=== PATIENT | male | born 1970 | race Hispanic/Latino ===

== ENCOUNTER → 2018-04-03 | Outpatient (CLI) | payer OTHER ==
--- NOTE | 2018-04-06 15:16 | Diagnostic Imaging Report ---
PROCEDURE:TESTICULAR DOPPLER ULTRASOUND COMPARISON:None. INDICATIONS:OTHER CHRONIC PAIN TECHNIQUE: West-scale and color Doppler images of the testicles and scrotal contents were obtained. Duplex imaging with spectral waveform analysis was performed of the testicular arteries and veins. FINDINGS: RIGHT SCROTUM: Testicle: Measures 3.7 x 2.8 x 2.6 cm. Epididymal head: Measures 0.7 x 1.3 x 0.6 cm. Hydrocele: Small hydrocele present. Varicocele: None LEFT SCROTUM: Testicle: The measures 3.9 x 2.3 x 2.6 cm. Epididymal head: Measures 0.8 x 0.9 x 0.6 cm. Hydrocele: Trace hydrocele present. The Varicocele: None Other: There is a small spermatocele present measuring 5 x 5 x 6 mm. CONCLUSION: 1. Small right greater than left bilateral hydroceles. 2. Spermatocele in the left side. Aakash León D.O. Dictated by: Aakash León D.O. on 04/06/2018 at 15:25 Electronically approved by: Aakash León D.O. on 04/06/2018 at 15:25
--- NOTE | 2018-04-06 15:42 | Diagnostic Imaging Report ---
PROCEDURE: TESTICULAR DOPPLER ULTRASOUND COMPARISON: None. INDICATIONS: OTHER CHRONIC PAIN TECHNIQUE: West-scale and color Doppler images of the testicles and scrotal contents were obtained. Duplex imaging with spectral waveform analysis was performed of the testicular arteries and veins. FINDINGS: RIGHT SCROTUM: Testicle: Measures 3.7 x 2.8 x 2.6 cm. Epididymal head: Measures 0.7 x 1.3 x 0.6 cm. Hydrocele: Small hydrocele present. Varicocele: None LEFT SCROTUM: Testicle: The measures 3.9 x 2.3 x 2.6 cm. Epididymal head: Measures 0.8 x 0.9 x 0.6 cm. Hydrocele: Trace hydrocele present. The Varicocele: None Other: There is a small spermatocele present measuring 5 x 5 x 6 mm. DOPPLER: Normal blood flow to both testes. CONCLUSION: 1. Small right greater than left bilateral hydroceles. 2. Spermatocele in the left side. Aakash León D.O. Dictated by: Aakash León D.O. on 04/06/2018 at 15:52 Electronically approved by: Aakash León D.O. on 04/06/2018 at 15:52
== END ==
LOC: US 16:06
PROVIDERS: ATTEND Urology
DX: G89.29 Other chronic pain (principal)
CPT/HCPCS: 76870; 93976

== ENCOUNTER 2020-12-21 10:18 | Inpatient (IN) | payer OTHER, SELFPAY ==
[~2020-12-21] VITALS: Ht 165.1 cm; Wt 69.4 kg
[2020-12-21] MEDS ORDERED: LACTATED RINGER'S 1,000 ML INJ ONE (10:30)
[2020-12-21] MEDS ORDERED: DEXAMETHASONE SOD PHOS 10 MG/1 ML VIAL IV ONE (10:30)
[2020-12-21] MEDS ORDERED: ONDANSETRON HCL INJ 2MG/ML 2ML 2 MG/ML VIAL IV PRN (10:45)
[2020-12-21 11:02] LABS: BASOPHILS % 0.4 % (0.0-1.0); EOSINOPHILS # (AUTO) 0.2 (0.0-0.4); EOSINOPHILS % 2.2 % (0.0-6.0); HEMATOCRIT 45.5 % (38.2-49.6); HEMOGLOBIN 15.7 g/dL (14.0-18.0); LYMPHOCYTES # (AUTO) 0.9 (1.0-3.2); LYMPHOCYTES % 8.6 % (18.0-39.1); MEAN CORPUSCULAR HEMOGLOBIN 29.1 pg (28-32); MEAN CORPUSCULAR HGB CONC 34.5 g/dL (31-35); MEAN CORPUSCULAR VOLUME 84.4 fL (81-99); MONOCYTES # (AUTO) 0.6 (0.2-0.8); MONOCYTES % 5.5 % (4.4-11.3); NEUTROPHILS # (AUTO) 8.4 (2.1-6.9); NEUTROPHILS % 80.4 % (38.7-80.0); PLATELET COUNT 372 x10e3/uL (140-360); RED BLOOD COUNT 5.39 x10e6/uL (4.3-5.7); RED CELL DISTRIBUTION WIDTH 11.8 % (11.7-14.4)
[2020-12-21 11:50] LABS: ANION GAP 15.8 mmol/L (8-16); CALCIUM 8.4 mg/dL (8.4-10.2); CREATININE, SERUM 0.87 mg/dL (0.72-1.25); POTASSIUM 3.8 mmol/L (3.5-5.1)
[2020-12-21] MEDS ORDERED: ACETAMINOPHEN 325 MG TAB PO PRN (15:00)
[2020-12-21] MEDS ORDERED: ZOLPIDEM TARTRATE 5 MG TAB PO PRN (17:30)
[2020-12-21] MEDS ORDERED: REMDESIVIR 200MG 200 MG in SODIUM CHLORIDE 0.9% 100 ML 100 ML IV ONE (17:30)
[2020-12-21] MEDS: CEFTRIAXONE 1 GM in SODIUM CHLORIDE 0.9% 50ML 50 ML IV SCH (17:41)
[2020-12-21] MEDS ORDERED: SODIUM CHLORIDE 0.9% 50ML 50 ML ONE (17:44)
[2020-12-21] MEDS ORDERED: GUAIFENESIN/CODEINE 5 ML LIQD PO PRN (17:45)
[2020-12-21] MEDS ORDERED: CEFTRIAXONE 1 GM VIAL ONE (17:45)
[2020-12-21] MEDS ORDERED: SODIUM CHLORIDE 0.9% 100 ML ONE (18:14)
[2020-12-21] MEDS ORDERED: REMDESIVIR IV ONE (18:14)
[2020-12-21] MEDS: ENOXAPARIN SOD INJ 40 MG/0.4 ML SYR SC SCH (20:49)
[2020-12-21] MEDS: ASCORBIC ACID 500 MG TAB PO SCH (20:49)
[2020-12-22] MEDS: ASCORBIC ACID 500 MG TAB PO SCH ×2 (09:03→20:11)
[2020-12-22] MEDS: ZINC SULFATE 220 MG CAP PO SCH (09:03)
[2020-12-22] MEDS: DEXAMETHASONE SOD PHOS 10 MG/1 ML VIAL IV SCH (09:04)
[2020-12-22] MEDS: ENOXAPARIN SOD INJ 40 MG/0.4 ML SYR SC SCH ×2 (09:04→20:11)
[2020-12-22 09:07] LABS: BASOPHILS % 0.2 % (0.0-1.0); EOSINOPHILS % 0.1 % (0.0-6.0); HEMATOCRIT 41.7 % (38.2-49.6); HEMOGLOBIN 14.7 g/dL (14.0-18.0); LYMPHOCYTES # (AUTO) 0.7 (1.0-3.2); MEAN CORPUSCULAR HEMOGLOBIN 29.6 pg (28-32); MEAN CORPUSCULAR HGB CONC 35.3 g/dL (31-35); MEAN CORPUSCULAR VOLUME 84.1 fL (81-99); MONOCYTES # (AUTO) 0.6 (0.2-0.8); MONOCYTES % 5.6 % (4.4-11.3); NEUTROPHILS # (AUTO) 8.5 (2.1-6.9); NEUTROPHILS % 82.7 % (38.7-80.0); PLATELET COUNT 432 x10e3/uL (140-360); RED BLOOD COUNT 4.96 x10e6/uL (4.3-5.7); RED CELL DISTRIBUTION WIDTH 11.7 % (11.7-14.4)
[2020-12-22 09:30] LABS: ANION GAP 16.9 mmol/L (8-16); CALCIUM 8.6 mg/dL (8.4-10.2); CREATININE, SERUM 0.75 mg/dL (0.72-1.25); POTASSIUM 3.9 mmol/L (3.5-5.1)
[2020-12-22] MEDS: REMDESIVIR 100MG 100 MG in SODIUM CHLORIDE 0.9% 100 ML IV SCH (16:19)
[2020-12-22] MEDS: CEFTRIAXONE 1 GM in SODIUM CHLORIDE 0.9% 50ML 50 ML IV SCH (16:20)
[2020-12-22] MEDS ORDERED: REMDESIVIR 100 MG IV SCH (17:30)
[2020-12-23] MEDS: ENOXAPARIN SOD INJ 40 MG/0.4 ML SYR SC SCH ×2 (09:00→20:41)
[2020-12-23] MEDS: ASCORBIC ACID 500 MG TAB PO SCH ×2 (09:00→20:40)
[2020-12-23] MEDS: ZINC SULFATE 220 MG CAP PO SCH (09:00)
[2020-12-23] MEDS: DEXAMETHASONE SOD PHOS 10 MG/1 ML VIAL IV SCH (09:30)
[2020-12-23] MEDS: REMDESIVIR 100MG 100 MG in SODIUM CHLORIDE 0.9% 100 ML IV SCH (16:06)
[2020-12-23] MEDS: CEFTRIAXONE 1 GM in SODIUM CHLORIDE 0.9% 50ML 50 ML IV SCH (17:00)
[2020-12-24 05:58] LABS: BASOPHILS % 0.1 % (0.0-1.0); EOSINOPHILS % 0.1 % (0.0-6.0); HEMATOCRIT 39.1 % (38.2-49.6); HEMOGLOBIN 13.4 g/dL (14.0-18.0); LYMPHOCYTES # (AUTO) 0.8 (1.0-3.2); LYMPHOCYTES % 6.1 % (18.0-39.1); MEAN CORPUSCULAR HEMOGLOBIN 29.5 pg (28-32); MEAN CORPUSCULAR HGB CONC 34.3 g/dL (31-35); MEAN CORPUSCULAR VOLUME 86.1 fL (81-99); MONOCYTES # (AUTO) 0.7 (0.2-0.8); MONOCYTES % 5.2 % (4.4-11.3); NEUTROPHILS # (AUTO) 11.8 (2.1-6.9); PLATELET COUNT 423 x10e3/uL (140-360); RED BLOOD COUNT 4.54 x10e6/uL (4.3-5.7); RED CELL DISTRIBUTION WIDTH 11.8 % (11.7-14.4)
[2020-12-24 06:17] LABS: ALBUMIN 2.5 g/dL (3.5-5.0); ALBUMIN/GLOBULIN RATIO 0.7 (0.8-2.0); CALCIUM 8.1 mg/dL (8.4-10.2); CREATININE, SERUM 0.75 mg/dL (0.72-1.25)
[2020-12-24] MEDS: ASCORBIC ACID 500 MG TAB PO SCH ×2 (09:32→21:44)
[2020-12-24] MEDS: DEXAMETHASONE SOD PHOS 10 MG/1 ML VIAL IV SCH (09:32)
[2020-12-24] MEDS: ZINC SULFATE 220 MG CAP PO SCH (09:32)
[2020-12-24] MEDS: ENOXAPARIN SOD INJ 40 MG/0.4 ML SYR SC SCH ×2 (09:32→21:44)
[2020-12-24] MEDS: REMDESIVIR 100MG 100 MG in SODIUM CHLORIDE 0.9% 100 ML IV SCH (16:13)
[2020-12-24] MEDS: CEFTRIAXONE 1 GM in SODIUM CHLORIDE 0.9% 50ML 50 ML IV SCH (17:42)
[2020-12-25 06:17] LABS: BASOPHILS % 0.2 % (0.0-1.0); EOSINOPHILS % 0.2 % (0.0-6.0); HEMATOCRIT 39.2 % (38.2-49.6); HEMOGLOBIN 13.7 g/dL (14.0-18.0); LYMPHOCYTES % 7.7 % (18.0-39.1); MEAN CORPUSCULAR HEMOGLOBIN 30.1 pg (28-32); MEAN CORPUSCULAR HGB CONC 34.9 g/dL (31-35); MEAN CORPUSCULAR VOLUME 86.2 fL (81-99); MONOCYTES # (AUTO) 0.6 (0.2-0.8); MONOCYTES % 4.6 % (4.4-11.3); NEUTROPHILS # (AUTO) 11.3 (2.1-6.9); NEUTROPHILS % 83.7 % (38.7-80.0); PLATELET COUNT 408 x10e3/uL (140-360); RED BLOOD COUNT 4.55 x10e6/uL (4.3-5.7); RED CELL DISTRIBUTION WIDTH 11.8 % (11.7-14.4)
[2020-12-25 07:16] LABS: CREATININE, SERUM 0.7 mg/dL (0.72-1.25)
[2020-12-25 08:00] VITALS: BP 102/75
[2020-12-25 08:41] VITALS: BP 102/75
[2020-12-25] MEDS: ASCORBIC ACID 500 MG TAB PO SCH ×2 (08:47→21:25)
[2020-12-25] MEDS: ENOXAPARIN SOD INJ 40 MG/0.4 ML SYR SC SCH ×2 (08:47→21:25)
[2020-12-25] MEDS: ZINC SULFATE 220 MG CAP PO SCH (08:47)
[2020-12-25] MEDS: DEXAMETHASONE SOD PHOS 10 MG/1 ML VIAL IV SCH (09:10)
[2020-12-25 11:00] VITALS: BP 113/65
[2020-12-25 15:00] VITALS: BP 114/69
[2020-12-25] MEDS: REMDESIVIR 100MG 100 MG in SODIUM CHLORIDE 0.9% 100 ML IV SCH (16:15)
[2020-12-25] MEDS ORDERED: SODIUM CHLORIDE 0.9% 500ML 500 ML ONE (16:28)
[2020-12-25 20:00] VITALS: BP 115/75
[2020-12-25 21:37] VITALS: BP 115/75
[2020-12-26] VITALS (8 sets, daily range): BP systolic 95–120; BP diastolic 55–70
[2020-12-26 05:13] LABS: BASOPHILS # (AUTO) 0.1 (0.0-0.1); BASOPHILS % 0.3 % (0.0-1.0); HEMATOCRIT 41.5 % (38.2-49.6); HEMOGLOBIN 14.4 g/dL (14.0-18.0); LYMPHOCYTES % 5.9 % (18.0-39.1); MEAN CORPUSCULAR HEMOGLOBIN 29.6 pg (28-32); MEAN CORPUSCULAR HGB CONC 34.7 g/dL (31-35); MEAN CORPUSCULAR VOLUME 85.2 fL (81-99); MONOCYTES # (AUTO) 0.4 (0.2-0.8); MONOCYTES % 2.4 % (4.4-11.3); NEUTROPHILS # (AUTO) 14.9 (2.1-6.9); NEUTROPHILS % 87.9 % (38.7-80.0); PLATELET COUNT 478 x10e3/uL (140-360); RED BLOOD COUNT 4.87 x10e6/uL (4.3-5.7); RED CELL DISTRIBUTION WIDTH 11.8 % (11.7-14.4)
[2020-12-26 05:50] LABS: ANION GAP 12.3 mmol/L (8-16); CALCIUM 8.5 mg/dL (8.4-10.2); CREATININE, SERUM 0.74 mg/dL (0.72-1.25); POTASSIUM 4.3 mmol/L (3.5-5.1)
[2020-12-26] MEDS: ASCORBIC ACID 500 MG TAB PO SCH ×2 (08:38→20:59)
[2020-12-26] MEDS: ZINC SULFATE 220 MG CAP PO SCH (08:38)
[2020-12-26] MEDS: ENOXAPARIN SOD INJ 40 MG/0.4 ML SYR SC SCH ×2 (08:38→20:59)
[2020-12-26] MEDS: DEXAMETHASONE SOD PHOS 10 MG/1 ML VIAL IV SCH (09:00)
[2020-12-27] VITALS (8 sets, daily range): BP systolic 92–125; BP diastolic 65–89
[2020-12-27] MEDS: ASCORBIC ACID 500 MG TAB PO SCH ×2 (08:58→21:07)
[2020-12-27] MEDS: ZINC SULFATE 220 MG CAP PO SCH (08:58)
[2020-12-27] MEDS: ENOXAPARIN SOD INJ 40 MG/0.4 ML SYR SC SCH ×2 (08:58→21:07)
[2020-12-27] MEDS: DEXAMETHASONE SOD PHOS 10 MG/1 ML VIAL IV SCH (09:00)
[2020-12-28] VITALS (8 sets, daily range): BP systolic 101–127; BP diastolic 66–85
[2020-12-28] MEDS: ASCORBIC ACID 500 MG TAB PO SCH ×2 (07:56→21:39)
[2020-12-28] MEDS: ZINC SULFATE 220 MG CAP PO SCH (07:57)
[2020-12-28 08:19] LABS: BASOPHILS # (AUTO) 0.1 (0.0-0.1); BASOPHILS % 0.4 % (0.0-1.0); EOSINOPHILS % 0.1 % (0.0-6.0); HEMATOCRIT 48.6 % (38.2-49.6); HEMOGLOBIN 16.5 g/dL (14.0-18.0); LYMPHOCYTES # (AUTO) 1.6 (1.0-3.2); LYMPHOCYTES % 8.2 % (18.0-39.1); MEAN CORPUSCULAR HEMOGLOBIN 29.5 pg (28-32); MEAN CORPUSCULAR VOLUME 86.8 fL (81-99); MONOCYTES # (AUTO) 0.7 (0.2-0.8); MONOCYTES % 3.5 % (4.4-11.3); NEUTROPHILS # (AUTO) 16.4 (2.1-6.9); NEUTROPHILS % 82.5 % (38.7-80.0); PLATELET COUNT 513 x10e3/uL (140-360); RED CELL DISTRIBUTION WIDTH 12.2 % (11.7-14.4)
[2020-12-28 08:44] LABS: ANION GAP 16.7 mmol/L (8-16); CALCIUM 8.7 mg/dL (8.4-10.2); CREATININE, SERUM 0.93 mg/dL (0.72-1.25); POTASSIUM 3.7 mmol/L (3.5-5.1)
[2020-12-28] MEDS: DEXAMETHASONE SOD PHOS 10 MG/1 ML VIAL IV SCH (09:45)
[2020-12-28] MEDS: ENOXAPARIN SOD INJ 40 MG/0.4 ML SYR SC SCH (09:45)
[2020-12-29] VITALS (10 sets, daily range): BP systolic 92–120; BP diastolic 69–83
[2020-12-29 06:10] LABS: BASOPHILS # (AUTO) 0.1 (0.0-0.1); BASOPHILS % 0.3 % (0.0-1.0); EOSINOPHILS % 0.2 % (0.0-6.0); HEMATOCRIT 43.4 % (38.2-49.6); LYMPHOCYTES # (AUTO) 1.4 (1.0-3.2); LYMPHOCYTES % 7.8 % (18.0-39.1); MEAN CORPUSCULAR HEMOGLOBIN 29.8 pg (28-32); MEAN CORPUSCULAR HGB CONC 34.6 g/dL (31-35); MEAN CORPUSCULAR VOLUME 86.3 fL (81-99); MONOCYTES % 5.8 % (4.4-11.3); NEUTROPHILS % 80.6 % (38.7-80.0); PLATELET COUNT 422 x10e3/uL (140-360); RED BLOOD COUNT 5.03 x10e6/uL (4.3-5.7); RED CELL DISTRIBUTION WIDTH 12.3 % (11.7-14.4)
[2020-12-29 06:50] LABS: ANION GAP 14.3 mmol/L (8-16); CALCIUM 8.4 mg/dL (8.4-10.2); CREATININE, SERUM 0.79 mg/dL (0.72-1.25); POTASSIUM 4.3 mmol/L (3.5-5.1)
[2020-12-29] MEDS: ASCORBIC ACID 500 MG TAB PO SCH ×2 (08:08→21:00)
[2020-12-29] MEDS: ZINC SULFATE 220 MG CAP PO SCH (08:08)
[2020-12-29 10:59] LABS: ABG HCO3 27 mmol/L (22-26); ABG PCO2 36 mmHg (35-45); ABG PH 7.48 (7.35-7.45); ABG PO2 55 mmHg (80-105); ABG TCO2 28
[2020-12-29] MEDS ORDERED: PIPERACILLIN/TAZOBACTAM 3.375 GM in SODIUM CHLORIDE 0.9% 50ML 50 ML IV SCH (14:00)
[2020-12-29] MEDS: DEXAMETHASONE SOD PHOS 10 MG/1 ML VIAL IV SCH (17:18)
[2020-12-29] MEDS: PIPERACILLIN/TAZOBACTAM 3.375 GM in SODIUM CHLORIDE 0.9% 50ML 50 ML IV SCH (17:18)
[2020-12-29] MEDS: ENOXAPARIN SOD INJ 40 MG/0.4 ML SYR SC SCH (17:18)
[2020-12-30] VITALS (8 sets, daily range): BP systolic 105–143; BP diastolic 48–81
[2020-12-30] MEDS: PIPERACILLIN/TAZOBACTAM 3.375 GM in SODIUM CHLORIDE 0.9% 50ML 50 ML IV SCH ×3 (01:00→18:17)
[2020-12-30] MEDS: ASCORBIC ACID 500 MG TAB PO SCH ×2 (09:48→20:44)
[2020-12-30] MEDS: ZINC SULFATE 220 MG CAP PO SCH (09:48)
[2020-12-30] MEDS: DEXAMETHASONE SOD PHOS 10 MG/1 ML VIAL IV SCH (09:48)
[2020-12-30] MEDS ORDERED: SODIUM CHLORIDE 0.9% 250ML 250 ML ONE (18:13)
[2020-12-30] MEDS: ENOXAPARIN SOD INJ 40 MG/0.4 ML SYR SC SCH (18:17)
[2020-12-31] VITALS: BP 118/70
[2020-12-31] MEDS: PIPERACILLIN/TAZOBACTAM 3.375 GM in SODIUM CHLORIDE 0.9% 50ML 50 ML IV SCH ×3 (01:18→17:57)
[2020-12-31 04:00] VITALS: BP 98/76
[2020-12-31 08:00] VITALS: BP 109/66
[2020-12-31] MEDS: ASCORBIC ACID 500 MG TAB PO SCH ×2 (09:15→21:19)
[2020-12-31] MEDS: ZINC SULFATE 220 MG CAP PO SCH (09:15)
[2020-12-31] MEDS: DEXAMETHASONE SOD PHOS 10 MG/1 ML VIAL IV SCH (09:15)
[2020-12-31 09:57] LABS: HEMATOCRIT 45.4 % (38.2-49.6); HEMOGLOBIN 15.5 g/dL (14.0-18.0); LYMPHOCYTES % 7.9 % (18.0-39.1); MEAN CORPUSCULAR HGB CONC 34.1 g/dL (31-35); MONOCYTES % 6.5 % (4.4-11.3); NEUTROPHILS % 80.7 % (38.7-80.0); PLATELET COUNT 378 x10e3/uL (140-360); RED BLOOD COUNT 5.16 x10e6/uL (4.3-5.7); RED CELL DISTRIBUTION WIDTH 12.8 % (11.7-14.4)
[2020-12-31 09:58] LABS: BASOPHILS # (AUTO) 0.1 (0.0-0.1); BASOPHILS % 0.4 % (0.0-1.0); EOSINOPHILS % 0.1 % (0.0-6.0); LYMPHOCYTES # (AUTO) 1.4 (1.0-3.2); MONOCYTES # (AUTO) 1.2 (0.2-0.8); NEUTROPHILS # (AUTO) 14.6 (2.1-6.9)
[2020-12-31 10:11] LABS: ANION GAP 13.8 mmol/L (8-16); CALCIUM 8.7 mg/dL (8.4-10.2); CREATININE, SERUM 0.79 mg/dL (0.72-1.25); POTASSIUM 3.8 mmol/L (3.5-5.1)
[2020-12-31 11:59] VITALS: BP 112/70
[2020-12-31 16:00] VITALS: BP 135/86
[2020-12-31] MEDS: ENOXAPARIN SOD INJ 40 MG/0.4 ML SYR SC SCH (17:57)
[2020-12-31 20:00] VITALS: BP 123/74
[2021-01-01] VITALS (7 sets, daily range): BP systolic 92–130; BP diastolic 61–82
[2021-01-01] MEDS: PIPERACILLIN/TAZOBACTAM 3.375 GM in SODIUM CHLORIDE 0.9% 50ML 50 ML IV SCH ×3 (01:15→16:58)
[2021-01-01] MEDS: DEXAMETHASONE SOD PHOS 10 MG/1 ML VIAL IV SCH (08:22)
[2021-01-01] MEDS: ASCORBIC ACID 500 MG TAB PO SCH ×2 (08:22→20:48)
[2021-01-01] MEDS: ZINC SULFATE 220 MG CAP PO SCH (08:22)
[2021-01-01] MEDS: ENOXAPARIN SOD INJ 40 MG/0.4 ML SYR SC SCH (16:58)
[2021-01-02] MEDS: PIPERACILLIN/TAZOBACTAM 3.375 GM in SODIUM CHLORIDE 0.9% 50ML 50 ML IV SCH ×3 (00:40→16:49)
[2021-01-02 00:50] VITALS: BP 125/75
[2021-01-02 04:00] VITALS: BP 126/82
[2021-01-02 08:00] VITALS: BP 120/69
[2021-01-02] MEDS: DEXAMETHASONE SOD PHOS 10 MG/1 ML VIAL IV SCH (09:15)
[2021-01-02] MEDS: ASCORBIC ACID 500 MG TAB PO SCH (09:18)
[2021-01-02] MEDS: ZINC SULFATE 220 MG CAP PO SCH (09:18)
[2021-01-02 10:00] VITALS: BP 120/69
[2021-01-02] MEDS: ENOXAPARIN SOD INJ 40 MG/0.4 ML SYR SC SCH (16:49)
[2021-01-02] MEDS ORDERED: ONDANSETRON HCL 4 MG ORAL DISINTEGRATING TAB PO PRN (17:30)
== END 2021-01-02 18:53 | disposition home or self-care (01) | DRG 177 ==
LOC: ER 10:25 → ERHOLD 10:31 → IMCU 12-25 07:38
PROVIDERS: ADMIT Internal Medicine; ATTEND Internal Medicine
PROC: 8E0ZXY6 Isolation (ICD-10-PCS; principal; 2020-12-21)
PROC: XW043E5 Introduction of Remdesivir Anti-infective into Central Vein, Percutaneous Approach, New Technology Group 5 (ICD-10-PCS; 2020-12-22)
PROC: 02HV33Z Insertion of Infusion Device into Superior Vena Cava, Percutaneous Approach (ICD-10-PCS; 2020-12-22)
DX: U07.1 COVID-19 (principal); J12.82 Pneumonia due to coronavirus disease 2019; J69.0 Pneumonitis due to inhalation of food and vomit; A41.89 Other specified sepsis; J96.01 Acute respiratory failure with hypoxia; E87.1 Hypo-osmolality and hyponatremia; D64.9 Anemia, unspecified; Z68.29 Body mass index [BMI] 29.0-29.9, adult; E66.3 Overweight
CPT/HCPCS: 36415; 36569; 36600; 71045; 71260; 80048; 80053; 82805; 83735; 84484; 85025; 86140; 87040; 93005; 99285; J0456; J0696; J1100; J1650; J2543; J7040; J7050; J7121; U0002